=== PATIENT | female | born 1955 | race Caucasian/White ===

== ENCOUNTER 2018-05-23 23:07 | Emergency (ER) | payer BC ==
[~2018-05-23] VITALS: Ht 160 cm; Wt 49.6 kg
[~2018-05-23 23:07] MED LIST: ACET-2119 PO; MELA3TAB PO; MULT1TAB74 PO
[2018-05-23 23:08] VITALS: BP 163/102
--- NOTE | 2018-05-23 23:53 | NUR ---
REMOVED 120ML OF BLOOD FROM PENIS
== END 2018-05-24 00:56 | disposition home or self-care (01) ==
LOC: ER 23:08
DX: S01.81XA Laceration without foreign body of other part of head, initial encounter (principal); M54.2 Cervicalgia; Z88.0 Allergy status to penicillin; Z88.8 Allergy status to other drugs, medicaments and biological substances; Z88.2 Allergy status to sulfonamides; Z79.899 Other long term (current) drug therapy; W01.198A Fall on same level from slipping, tripping and stumbling with subsequent striking against other object, initial encounter; Y93.89 Activity, other specified; Y92.89 Other specified places as the place of occurrence of the external cause; Y99.9 Unspecified external cause status
CPT/HCPCS: 12002; 12013; 99283

== ENCOUNTER 2018-05-26 12:49 | Emergency (ER) | payer BC ==
[~2018-05-26] VITALS: Ht 157.5 cm; Wt 57.0 kg
[2018-05-26 12:51] VITALS: BP 148/76
== END 2018-05-26 14:41 | disposition home or self-care (01) ==
LOC: ER 12:49
DX: S01.81XD Laceration without foreign body of other part of head, subsequent encounter (principal); Z88.0 Allergy status to penicillin; Z88.2 Allergy status to sulfonamides; Z79.899 Other long term (current) drug therapy; Z90.710 Acquired absence of both cervix and uterus; W01.198D Fall on same level from slipping, tripping and stumbling with subsequent striking against other object, subsequent encounter
CPT/HCPCS: 99284